=== PATIENT | female | born 1985 | race Caucasian/White ===

== ENCOUNTER 2022-09-14 21:48 | Emergency (ER) | payer MEDICAID ==
[~2022-09-14] VITALS: Ht 167.6 cm; Wt 52.2 kg
[~2022-09-14 21:48] MED LIST: BENZ-38 PO; LACT1CAP26 PO; LIDO20SO16 PO
[2022-09-14 22:28] LABS: BASOPHILS % (AUTO) 0.5 % (0-1); EOSINOPHILS # (AUTO) 0.3 X10'3 (0-0.9); EOSINOPHILS % (AUTO) 3.2 % (0-6); HEMOGLOBIN 13.4 g/dl (12.0-16.0); LYMPHOCYTES # (AUTO) 3.5 X10'3 (1.1-4.8); LYMPHOCYTES % (AUTO) 42.5 % (21-51); MEAN CORPUSCULAR HEMOGLOBIN 31.3 PG (27.0-31.0); MEAN CORPUSCULAR HGB CONC 32.7 g/dL (33.0-36.5); MEAN CORPUSCULAR VOLUME 95.9 FL (78-98); MEAN PLATELET VOLUME 6.5 FL (7.4-10.4); MONOCYTES # (AUTO) 0.8 X10'3 (0-0.9); MONOCYTES % (AUTO) 10.2 % (2-12); NEUTROPHILS # (AUTO) 3.6 X10'3 (1.8-7.7); NEUTROPHILS % (AUTO) 43.6 % (42-75); PLATELET COUNT 445 X10'3 (140-440); RED BLOOD COUNT 4.28 X10'6 (4.20-5.60); RED CELL DISTRIBUTION WIDTH 14.5 % (11.5-14.5); WHITE BLOOD COUNT 8.2 X10'3 (4.5-11.0)
[2022-09-14 22:44] LABS: ALANINE AMINOTRANSFERASE 42 U/L (12-78); ALBUMIN/GLOBULIN RATIO 0.7 (1.1-1.5); ALKALINE PHOSPHATASE 83 IU/L (46-116); ANION GAP 7 (8-16); ASPARTATE AMINO TRANSFERASE 31 U/L (10-37); BILIRUBIN,TOTAL 0.3 MG/DL (0.1-1.0); BLOOD UREA NITROGEN 15 MG/DL (7-18); CALCIUM 8.7 MG/DL (8.5-10.1); CHLORIDE 103 MMOL/L (99-107); LIPASE 399 U/L (73-393); POTASSIUM 3.7 MMOL/L (3.5-5.1); SODIUM 138 MMOL/L (135-145); TOTAL CARBON DIOXIDE 28.2 MMOL/L (24-32); TOTAL PROTEIN 7.4 G/DL (6.4-8.2); eGFR > 90 ML/MIN
[2022-09-14 22:47] LABS: GLUCOSE 80 MG/DL (70-104)
[2022-09-15 08:52] VITALS: BP 112/65
[2022-09-15] MEDS ORDERED: normal saline 1000ML IV soln IVB ONE (08:55)
[2022-09-15] MEDS ORDERED: ondansetron/PF 4mg/2ml inj IV ONE (08:55)
[2022-09-15] MEDS ORDERED: ibuprofen 200mg tablet PO ONE (09:25)
[2022-09-15] MEDS ORDERED: mirtazapine 15mg tablet PO ONE (09:25)
[2022-09-15 10:00] LABS: URINE HCG NEGATIVE (NEG)
[2022-09-15 10:02] LABS: CLARITY,URINE CLEAR (Clear); COLOR,URINE YELLOW (Yellow); GLUCOSE, URINE NEGATIVE (Neg); KETONES,URINE NEGATIVE (Neg); LEUKOCYTE ESTERASE ,URINE TRACE (Neg); NITRITES, URINE NEGATIVE (Neg); OCCULT BLOOD,URINE NEGATIVE (Neg); PH,URINE 5.5 (4.8-8.0); PROTEIN,URINE NEGATIVE (Neg); UROBILINOGEN,URINE 0.2 E.U/dL (0.2-1.0)
[2022-09-15 10:10] LABS: UA COLLECTION TYPE CLN CATCH MIDSTREAM
[2022-09-15 10:24] LABS: SQUAMOUS EPITHELIAL CELL,UR MODERATE /LPF (FEW); TRICHOMONAS,URINE FEW /HPF (NEGATIVE)
[2022-09-15 10:26] LABS: WBC,URINE 0-4 /HPF (0-4)
[2022-09-15 10:27] LABS: BACTERIA,URINE NONE SEEN /HPF (Neg); RBC,URINE 0-2 /HPF (0-2)
[2022-09-15] MEDS ORDERED: CEPH-268 PO (11:18)
[2022-09-15] MEDS ORDERED: cephalexin 500mg capsule PO ONE (11:20)
[2022-09-15] MEDS ORDERED: metroNIDAZOLE 500mg tablet PO ONE (11:20)
[2022-09-15] MEDS ORDERED: mirtazapine 15mg tablet PO SCH (21:00)
== END 2022-09-15 11:55 | disposition home or self-care (01) ==
LOC: ER 21:50
DX: R10.13 Epigastric pain (principal); A59.8 Trichomoniasis of other sites; N34.2 Other urethritis; R19.7 Diarrhea, unspecified
CPT/HCPCS: 36415; 80053; 81001; 81025; 83690; 85025; 87088; 96374; 99283; J2405; J7030

== ENCOUNTER 2022-12-23 09:59 | Emergency (ER) | payer MEDICAID ==
[~2022-12-23] VITALS: Ht 170.2 cm; Wt 52.0 kg
[~2022-12-23 09:59] MED LIST changes: -BENZ-38 PO
[2022-12-23 10:18] VITALS: BP 115/58
== END 2022-12-23 11:25 | disposition home or self-care (01) ==
LOC: ER 10:00
DX: R55 Syncope and collapse (principal); Z79.899 Other long term (current) drug therapy
CPT/HCPCS: 99281

== ENCOUNTER 2023-03-25 08:35 | Emergency (ER) | payer MEDICAID ==
[~2023-03-25 08:35] MED LIST changes: +DOCU100C40 PO; -LACT1CAP26 PO; -LIDO20SO16 PO; +NICO-687 TD; +PALI156D IM; +PALI3TAB5 PO; +PANT40TA54 PO
== END 2023-03-25 08:59 | disposition left against medical advice (07) ==
LOC: ER 08:35
DX: R10.9 Unspecified abdominal pain (principal); Z53.21 Procedure and treatment not carried out due to patient leaving prior to being seen by health care provider

== ENCOUNTER 2023-04-07 17:20 | Emergency (ER) | payer MEDICAID | END 2023-04-07 18:53 | disposition left against medical advice (07) | LOC: ER 17:21 | DX: Z00.8 Encounter for other general examination (principal); Z53.21 Procedure and treatment not carried out due to patient leaving prior to being seen by health care provider ==

== ENCOUNTER 2023-05-16 00:32 | Emergency (ER) | payer MEDICAID ==
[~2023-05-16] VITALS: Ht 170.2 cm; Wt 59.1 kg
[2023-05-16 00:54] VITALS: BP 121/72; PULSE 72; RESP 14; TEMP 97.8; O2SAT 98
== END 2023-05-16 02:45 | disposition left against medical advice (07) ==
LOC: ER 00:34
DX: R10.9 Unspecified abdominal pain (principal); Z53.21 Procedure and treatment not carried out due to patient leaving prior to being seen by health care provider
CPT/HCPCS: 99281

== ENCOUNTER 2023-07-19 21:25 | Emergency (ER) | payer MEDICAID ==
[~2023-07-19] VITALS: Ht 170.2 cm; Wt 48.2 kg
[2023-07-19 21:26] VITALS: TEMP 98.8
[2023-07-20 03:01] VITALS: BP 121/82; PULSE 89; RESP 18; O2SAT 99
== END 2023-07-20 06:14 | disposition left against medical advice (07) ==
LOC: ER 21:26
DX: F41.9 Anxiety disorder, unspecified (principal); Z53.21 Procedure and treatment not carried out due to patient leaving prior to being seen by health care provider
CPT/HCPCS: 99281

== ENCOUNTER 2023-07-23 17:59 | Emergency (ER) | payer MEDICAID | END 2023-07-23 19:28 | disposition left against medical advice (07) | LOC: ER 18:00 | DX: Z00.00 Encounter for general adult medical examination without abnormal findings (principal); Z53.21 Procedure and treatment not carried out due to patient leaving prior to being seen by health care provider ==

== ENCOUNTER 2023-07-23 19:38 | Emergency (ER) | payer MEDICAID | END 2023-07-23 21:21 | disposition left against medical advice (07) | LOC: ER 19:39 | DX: Z00.00 Encounter for general adult medical examination without abnormal findings (principal); Z53.21 Procedure and treatment not carried out due to patient leaving prior to being seen by health care provider ==

== ENCOUNTER 2023-07-24 07:38 | Emergency (ER) | payer MEDICAID | END 2023-07-24 09:30 | disposition left against medical advice (07) | LOC: ER 07:38 | DX: E86.0 Dehydration (principal); Z53.21 Procedure and treatment not carried out due to patient leaving prior to being seen by health care provider ==

== ENCOUNTER 2023-07-25 03:55 | Emergency (ER) | payer MEDICAID ==
[~2023-07-25] VITALS: Ht 170.2 cm; Wt 47.0 kg
[2023-07-25 04:31] VITALS: BP 125/87; PULSE 67; RESP 14; O2SAT 100
[2023-07-25 04:46] VITALS: TEMP 97.4
== END 2023-07-25 05:14 | disposition home or self-care (01) ==
LOC: ER 03:55
DX: Z02.89 Encounter for other administrative examinations (principal); F20.9 Schizophrenia, unspecified; Z79.899 Other long term (current) drug therapy; Z59.00 Homelessness unspecified
CPT/HCPCS: 99281

== ENCOUNTER 2023-07-27 17:36 | Emergency (ER) | payer MEDICAID ==
--- NOTE | 2023-07-27 18:05 | NUR ---
NOT IN LOBBY
--- NOTE | 2023-07-27 18:18 | NUR ---
NOT IN LOBBY
[2023-07-27] MEDS ORDERED: ONDA4TAB12 PO (21:48)
== END 2023-07-27 18:23 | disposition left against medical advice (07) ==
LOC: ER 17:36
DX: A08.4 Viral intestinal infection, unspecified (principal); Z53.21 Procedure and treatment not carried out due to patient leaving prior to being seen by health care provider
CPT/HCPCS: 99281

== ENCOUNTER 2023-07-27 18:42 | Emergency (ER) | payer MEDICAID ==
[~2023-07-27] VITALS: Ht 165.1 cm; Wt 50.6 kg
[2023-07-27] MEDS ORDERED: ondansetron 4mg rapidly disintigrating tab PO ONE (21:45)
[2023-07-27] MEDS ORDERED: ketorolac trometh. 30mg/ml inj. IM ONE (21:45)
[2023-07-27] MEDS ORDERED: ONDA4TAB12 PO (21:48)
[2023-07-27 22:08] VITALS: BP 126/85; PULSE 81; RESP 18; TEMP 97.8; O2SAT 98
== END 2023-07-27 22:12 | disposition home or self-care (01) ==
LOC: ER 18:43
DX: B34.9 Viral infection, unspecified (principal); F20.9 Schizophrenia, unspecified; Z79.899 Other long term (current) drug therapy
CPT/HCPCS: 96372; 99283; J1885

== ENCOUNTER 2023-08-10 05:53 | Emergency (ER) | payer MEDICAID ==
[~2023-08-10] VITALS: Ht 154.9 cm; Wt 50.0 kg
[~2023-08-10 05:53] MED LIST changes: +ONDA4TAB12 PO
[2023-08-10 05:54] VITALS: BP 91/60; PULSE 73; RESP 16; TEMP 97.1; O2SAT 100
--- NOTE | 2023-08-10 07:56 | NUR ---
not in lobby [id number]
--- NOTE | 2023-08-10 08:37 | NUR ---
not in lobby [id number]
--- NOTE | 2023-08-10 10:56 | NUR ---
pt not in lobby
== END 2023-08-10 12:00 | disposition left against medical advice (07) ==
LOC: ER 05:54
DX: R05.9 Cough, unspecified (principal); Z53.21 Procedure and treatment not carried out due to patient leaving prior to being seen by health care provider
CPT/HCPCS: 99281

== ENCOUNTER 2023-08-10 11:51 | Emergency (ER) | payer MEDICAID | END 2023-08-10 13:54 | disposition left against medical advice (07) | LOC: ER 11:52 | DX: Z45.1 Encounter for adjustment and management of infusion pump (principal); Z53.21 Procedure and treatment not carried out due to patient leaving prior to being seen by health care provider ==

== ENCOUNTER 2023-08-11 04:46 | Emergency (ER) | payer MEDICAID ==
[~2023-08-11] VITALS: Ht 162.6 cm; Wt 48.0 kg
[2023-08-11] MEDS ORDERED: ondansetron/PF 4mg/2ml inj IV ONE (06:50)
[2023-08-11] MEDS ORDERED: normal saline 1000ml 1,000 ML IV ONE (06:50)
[2023-08-11] MEDS ORDERED: famotidine/PF 10 mg/ml inj IV ONE (06:50)
[2023-08-11 07:53] LABS: URINE HCG NEGATIVE (NEG)
[2023-08-11 09:15] VITALS: BP 103/73; PULSE 83; RESP 16; TEMP 98.4; O2SAT 96
== END 2023-08-11 09:18 | disposition home or self-care (01) ==
LOC: ER 04:48
DX: R11.2 Nausea with vomiting, unspecified (principal); R10.9 Unspecified abdominal pain; Z59.00 Homelessness unspecified; Z79.899 Other long term (current) drug therapy; Z98.891 History of uterine scar from previous surgery
CPT/HCPCS: 81025; 96361; 96374; 96375; 99284; J2405; J3490; J7030; A4353

== ENCOUNTER 2023-08-14 00:37 | Emergency (ER) | payer MEDICAID ==
[~2023-08-14] VITALS: Ht 162.6 cm; Wt 54.0 kg
[2023-08-14 00:53] VITALS: BP 116/84; PULSE 79; RESP 18; TEMP 98.4; O2SAT 100
--- NOTE | 2023-08-14 02:54 | NUR ---
PT INFORMED PIPE STEM ALIGNER THAT SHE WAS LEAVING AFTER SPEAKING WITH DOCTOR. PT AMBULATED OUT OF ROOM 17 WITH EVEN, STEADY GAIT, NO S/S OF DISTRESS.
== END 2023-08-14 03:08 | disposition left against medical advice (07) ==
LOC: ER 00:39
DX: B34.9 Viral infection, unspecified (principal); Z59.00 Homelessness unspecified; Z79.899 Other long term (current) drug therapy
CPT/HCPCS: 99281

== ENCOUNTER 2023-08-15 00:46 | Emergency (ER) | payer MEDICAID ==
[~2023-08-15] VITALS: Ht 144.8 cm; Wt 49.8 kg
--- NOTE | 2023-08-15 03:51 | NUR ---
PER DR ZUNIGA, PT PROVIDED WITH PITCHER OF WATER, APPLE JUICE AND A TURKEY SANDWICH. SHE STATES "I DON'T WANT ANYTHING!" THIS RN LEFT THE ITEMS AND BEDSIDE AND REMINDED PATIENT THAT EATING AND DRINKING WILL HELP HER REACH HER STATED GOAL OF "REHYDRATION"
[2023-08-15 04:01] VITALS: BP 124/80; PULSE 80; RESP 18; TEMP 98; O2SAT 98
--- NOTE | 2023-08-15 04:01 | NUR ---
PER PTS REQUEST, NEW SWEATPANTS AND SWEATER PROVIDED. SHE IS EATING HER TURKEY SANDWICH AND HAS DRUNK THE WATER AND APPLE JUICE
== END 2023-08-15 04:03 | disposition home or self-care (01) ==
LOC: ER 00:47
DX: Z02.89 Encounter for other administrative examinations (principal); R53.1 Weakness; R11.2 Nausea with vomiting, unspecified; Z59.00 Homelessness unspecified; Z79.899 Other long term (current) drug therapy
CPT/HCPCS: 99281

== ENCOUNTER 2023-09-20 05:55 | Emergency (ER) | payer MEDICAID ==
[~2023-09-20] VITALS: Ht 162.6 cm; Wt 51.6 kg
[~2023-09-20 05:55] MED LIST changes: +FAMO20TA44 PO
[2023-09-20] MEDS ORDERED: ondansetron 4mg rapidly disintigrating tab PO ONE (06:55)
[2023-09-20 08:39] VITALS: BP 128/96; PULSE 74; RESP 12; TEMP 97.8; O2SAT 100
== END 2023-09-20 09:10 | disposition home or self-care (01) ==
LOC: ER 05:57
DX: R11.0 Nausea (principal)
CPT/HCPCS: 99283

== ENCOUNTER 2023-09-21 04:40 | Emergency (ER) | payer MEDICAID ==
[~2023-09-21] VITALS: Ht 167.6 cm; Wt 50.0 kg
[2023-09-21 05:31] VITALS: BP 135/78; PULSE 70; RESP 16; TEMP 98.2; O2SAT 98
== END 2023-09-21 05:37 | disposition home or self-care (01) ==
LOC: ER 04:41
DX: R11.0 Nausea (principal); Z59.00 Homelessness unspecified; Z72.89 Other problems related to lifestyle; Z79.899 Other long term (current) drug therapy; Z76.0 Encounter for issue of repeat prescription
CPT/HCPCS: 99281

== ENCOUNTER 2023-09-23 06:27 | Emergency (ER) | payer MEDICAID ==
[~2023-09-23] VITALS: Ht 162.6 cm; Wt 49.8 kg
[2023-09-23 06:29] VITALS: BP 112/79; PULSE 101; RESP 16; TEMP 98; O2SAT 96
== END 2023-09-23 08:09 | disposition left against medical advice (07) ==
LOC: ER 06:28
DX: E86.0 Dehydration (principal); Z53.21 Procedure and treatment not carried out due to patient leaving prior to being seen by health care provider
CPT/HCPCS: 99281

== ENCOUNTER 2023-10-05 08:22 | Emergency (ER) | payer MEDICAID ==
[~2023-10-05] VITALS: Ht 162.6 cm; Wt 52.2 kg
[2023-10-05 09:14] VITALS: TEMP 98.7
[2023-10-05] MEDS ORDERED: NAPR-56 PO (10:04)
[2023-10-05] MEDS ORDERED: ketorolac trometh inj. 60 MG/2 ML VIAL IM ONE (10:05)
[2023-10-05 10:27] VITALS: BP 118/81; PULSE 82; RESP 20; O2SAT 97
== END 2023-10-05 10:28 | disposition home or self-care (01) ==
LOC: ER 08:23
DX: B34.9 Viral infection, unspecified (principal); Z20.822 Contact with and (suspected) exposure to COVID-19; Z79.899 Other long term (current) drug therapy
CPT/HCPCS: 36415; 87811; 96372; 99283; J1885

== ENCOUNTER 2023-10-16 15:57 | Emergency (ER) | payer MEDICAID ==
[~2023-10-16] VITALS: Ht 162.6 cm; Wt 56.0 kg
[~2023-10-16 15:57] MED LIST changes: +NAPR-56 PO
[2023-10-16 16:06] VITALS: BP 134/97; PULSE 85; RESP 18; TEMP 97.7; O2SAT 100
[2023-10-16 17:40] LABS: BASOPHILS # (AUTO) 0.1 X10'3 (0-0.2); BASOPHILS % (AUTO) 0.8 % (0-1); EOSINOPHILS # (AUTO) 0.2 X10'3 (0-0.9); EOSINOPHILS % (AUTO) 2.7 % (0-6); HEMATOCRIT 47.1 % (35.0-45.0); HEMOGLOBIN 15.8 g/dl (12.0-16.0); LYMPHOCYTES # (AUTO) 2.9 X10'3 (1.1-4.8); LYMPHOCYTES % (AUTO) 35.2 % (21-51); MEAN CORPUSCULAR HEMOGLOBIN 32.8 PG (27.0-31.0); MEAN CORPUSCULAR HGB CONC 33.5 g/dL (33.0-36.5); MEAN PLATELET VOLUME 7.3 FL (7.4-10.4); MONOCYTES # (AUTO) 0.7 X10'3 (0-0.9); MONOCYTES % (AUTO) 8.4 % (2-12); NEUTROPHILS # (AUTO) 4.3 X10'3 (1.8-7.7); NEUTROPHILS % (AUTO) 52.9 % (42-75); PLATELET COUNT 309 X10'3 (140-440); RED BLOOD COUNT 4.81 X10'6 (4.20-5.60); RED CELL DISTRIBUTION WIDTH 13.6 % (11.5-14.5); WHITE BLOOD COUNT 8.2 X10'3 (4.5-11.0)
[2023-10-16 17:55] LABS: ALANINE AMINOTRANSFERASE 133 U/L (12-78); ALBUMIN 3.6 G/DL (3.4-5.0); ALBUMIN/GLOBULIN RATIO 0.9 (1.1-1.5); ALKALINE PHOSPHATASE 78 IU/L (46-116); ANION GAP 6 (8-16); ASPARTATE AMINO TRANSFERASE 114 U/L (10-37); BILIRUBIN,TOTAL 0.9 MG/DL (0.1-1.0); BLOOD UREA NITROGEN 18 MG/DL (7-18); CALCIUM 9.6 MG/DL (8.5-10.1); CHLORIDE 100 MMOL/L (99-107); CREATININE 0.75 MG/DL (0.40-0.90); ETHANOL < 10 MG/DL (<10); GLUCOSE 68 MG/DL (70-104); POTASSIUM 3.5 MMOL/L (3.5-5.1); SODIUM 137 MMOL/L (135-145); TOTAL CARBON DIOXIDE 30.7 MMOL/L (24-32); TOTAL PROTEIN 7.7 G/DL (6.4-8.2); eCRCL 90 ML/MIN; eGFR 87 ML/MIN
== END 2023-10-16 18:11 | disposition left against medical advice (07) ==
LOC: ER 15:58
DX: Z00.8 Encounter for other general examination (principal); Z53.21 Procedure and treatment not carried out due to patient leaving prior to being seen by health care provider
CPT/HCPCS: 36415; 80053; 80320; 85025; 99281

== ENCOUNTER 2023-10-16 23:40 | Emergency (ER) | payer MEDICAID ==
[~2023-10-16] VITALS: Ht 165.1 cm; Wt 51.7 kg
[2023-10-17 00:01] VITALS: BP 117/81; PULSE 88; O2SAT 98
[2023-10-17] MEDS ORDERED: ondansetron 4mg rapidly disintigrating tab PO ONE (02:30)
[2023-10-17 02:38] VITALS: RESP 16
[2023-10-17 02:40] VITALS: TEMP 98.6
== END 2023-10-17 02:40 | disposition home or self-care (01) ==
LOC: ER 23:42
DX: R11.0 Nausea (principal); F20.9 Schizophrenia, unspecified; Z59.00 Homelessness unspecified
CPT/HCPCS: 99283

== ENCOUNTER 2023-10-26 11:15 | Emergency (ER) | payer MEDICAID ==
[~2023-10-26] VITALS: Ht 162.6 cm; Wt 52.7 kg
[2023-10-26 11:53] VITALS: BP 133/81; PULSE 88; RESP 16; TEMP 98.2; O2SAT 100
[2023-10-26 13:21] LABS: BASOPHILS # (AUTO) 0.1 X10'3 (0-0.2); BASOPHILS % (AUTO) 1.1 % (0-1); EOSINOPHILS # (AUTO) 0.2 X10'3 (0-0.9); EOSINOPHILS % (AUTO) 2.5 % (0-6); HEMATOCRIT 40.2 % (35.0-45.0); HEMOGLOBIN 13.5 g/dl (12.0-16.0); LYMPHOCYTES # (AUTO) 3.9 X10'3 (1.1-4.8); LYMPHOCYTES % (AUTO) 52.9 % (21-51); MEAN CORPUSCULAR HEMOGLOBIN 33.3 PG (27.0-31.0); MEAN CORPUSCULAR HGB CONC 33.6 g/dL (33.0-36.5); MEAN CORPUSCULAR VOLUME 99.2 FL (78-98); MEAN PLATELET VOLUME 7.4 FL (7.4-10.4); MONOCYTES # (AUTO) 0.5 X10'3 (0-0.9); MONOCYTES % (AUTO) 6.2 % (2-12); NEUTROPHILS # (AUTO) 2.8 X10'3 (1.8-7.7); NEUTROPHILS % (AUTO) 37.3 % (42-75); PLATELET COUNT 257 X10'3 (140-440); RED BLOOD COUNT 4.06 X10'6 (4.20-5.60); RED CELL DISTRIBUTION WIDTH 13.8 % (11.5-14.5); WHITE BLOOD COUNT 7.5 X10'3 (4.5-11.0)
[2023-10-26 13:36] LABS: HCG SERUM QL NEGATIVE
[2023-10-26 13:44] LABS: ALANINE AMINOTRANSFERASE 74 U/L (12-78); ALBUMIN 2.8 G/DL (3.4-5.0); ALBUMIN/GLOBULIN RATIO 0.8 (1.1-1.5); ALKALINE PHOSPHATASE 60 IU/L (46-116); ANION GAP 9 (8-16); ASPARTATE AMINO TRANSFERASE 62 U/L (10-37); BILIRUBIN,TOTAL 0.4 MG/DL (0.1-1.0); BLOOD UREA NITROGEN 12 MG/DL (7-18); BUN/CREATININE RATIO 20.3 (10.0-20.0); CALCIUM 8.2 MG/DL (8.5-10.1); CHLORIDE 104 MMOL/L (99-107); CREATININE 0.59 MG/DL (0.40-0.90); ETHANOL 30 MG/DL (<10); GLUCOSE 106 MG/DL (70-104); LIPASE 54 U/L (16-77); POTASSIUM 3.8 MMOL/L (3.5-5.1); SALICYLATE 3.1 MG/DL (4.0-20.0); SODIUM 137 MMOL/L (135-145); TOTAL CARBON DIOXIDE 23.7 MMOL/L (24-32); TOTAL PROTEIN 6.3 G/DL (6.4-8.2); eCRCL 110 ML/MIN; eGFR > 90 ML/MIN
[2023-10-26 14:32] LABS: TOTAL CELLS COUNTED 100
[2023-10-26 14:33] LABS: PLATELET ESTIMATE NORMAL
== END 2023-10-26 15:19 | disposition left against medical advice (07) ==
LOC: ER 11:16
DX: R10.9 Unspecified abdominal pain (principal); Z79.899 Other long term (current) drug therapy
CPT/HCPCS: 36415; 80053; 80320; 80329; 83690; 84703; 85007; 85025; 99283

== ENCOUNTER 2023-11-12 11:32 | Emergency (ER) | payer MEDICAID ==
[~2023-11-12] VITALS: Ht 162.6 cm; Wt 50.3 kg
[~2023-11-12 11:32] MED LIST changes: -NAPR-56 PO
[2023-11-12 12:10] VITALS: BP 110/72; PULSE 100; RESP 16; TEMP 98.2; O2SAT 97
== END 2023-11-12 12:41 | disposition home or self-care (01) ==
LOC: ER 11:32
DX: E86.0 Dehydration (principal); F20.9 Schizophrenia, unspecified; F10.90 Alcohol use, unspecified, uncomplicated; Z59.00 Homelessness unspecified; Z79.899 Other long term (current) drug therapy; Z88.8 Allergy status to other drugs, medicaments and biological substances
CPT/HCPCS: 99281

== ENCOUNTER 2023-11-12 18:38 | Emergency (ER) | payer MEDICAID | END 2023-11-12 19:36 | disposition left against medical advice (07) | LOC: ER 18:38 | DX: J06.9 Acute upper respiratory infection, unspecified (principal); Z53.21 Procedure and treatment not carried out due to patient leaving prior to being seen by health care provider ==

== ENCOUNTER 2023-11-14 18:08 | Emergency (ER) | payer MEDICAID ==
[~2023-11-14] VITALS: Ht 157.5 cm; Wt 49.6 kg
[2023-11-14 18:16] VITALS: BP 100/66; PULSE 80; RESP 16; TEMP 98.7; O2SAT 98
[2023-11-14 18:32] LABS: BASOPHILS % (AUTO) 0.2 % (0-1); EOSINOPHILS # (AUTO) 0.1 X10'3 (0-0.9); EOSINOPHILS % (AUTO) 1.4 % (0-6); HEMATOCRIT 39.4 % (35.0-45.0); HEMOGLOBIN 13.5 g/dl (12.0-16.0); LYMPHOCYTES # (AUTO) 2.9 X10'3 (1.1-4.8); LYMPHOCYTES % (AUTO) 45.1 % (21-51); MEAN CORPUSCULAR HEMOGLOBIN 32.9 PG (27.0-31.0); MEAN CORPUSCULAR HGB CONC 34.3 g/dL (33.0-36.5); MEAN CORPUSCULAR VOLUME 96.1 FL (78-98); MEAN PLATELET VOLUME 7.4 FL (7.4-10.4); MONOCYTES # (AUTO) 0.7 X10'3 (0-0.9); MONOCYTES % (AUTO) 10.9 % (2-12); NEUTROPHILS # (AUTO) 2.7 X10'3 (1.8-7.7); NEUTROPHILS % (AUTO) 42.4 % (42-75); PLATELET COUNT 324 X10'3 (140-440); RED CELL DISTRIBUTION WIDTH 13.8 % (11.5-14.5); WHITE BLOOD COUNT 6.5 X10'3 (4.5-11.0)
[2023-11-14 18:42] LABS: ALANINE AMINOTRANSFERASE 26 U/L (12-78); ALBUMIN 2.3 G/DL (3.4-5.0); ALBUMIN/GLOBULIN RATIO 0.5 (1.1-1.5); ALKALINE PHOSPHATASE 68 IU/L (46-116); ANION GAP 7 (8-16); ASPARTATE AMINO TRANSFERASE 21 U/L (10-37); BILIRUBIN,TOTAL 0.3 MG/DL (0.1-1.0); BLOOD UREA NITROGEN 7 MG/DL (7-18); BUN/CREATININE RATIO 10.3 (10.0-20.0); CALCIUM 8.6 MG/DL (8.5-10.1); CHLORIDE 104 MMOL/L (99-107); CREATININE 0.68 MG/DL (0.40-0.90); GLUCOSE 90 MG/DL (70-104); POTASSIUM 3.6 MMOL/L (3.5-5.1); SODIUM 146 MMOL/L (135-145); TOTAL CARBON DIOXIDE 34.8 MMOL/L (24-32); TOTAL PROTEIN 6.6 G/DL (6.4-8.2); eCRCL 90 ML/MIN; eGFR > 90 ML/MIN
[2023-11-14 18:51] LABS: PRO BRAIN NATRIURETIC PEPTIDE 60 PG/ML (0-125)
[2023-11-14] MEDS ORDERED: BENZ-38 PO (19:29)
[2023-11-14] MEDS ORDERED: ONDA4TAB12 PO (19:29)
[2023-11-14] MEDS: ondansetron 4mg rapidly disintigrating tab PO ONE (19:40)
[2023-11-14] MEDS: benzonatate 100mg capsule PO ONE (19:40)
== END 2023-11-14 20:04 | disposition home or self-care (01) ==
LOC: ER 18:09
DX: J06.9 Acute upper respiratory infection, unspecified (principal); R05.9 Cough, unspecified; E86.0 Dehydration; F20.9 Schizophrenia, unspecified; Z72.89 Other problems related to lifestyle; Z59.00 Homelessness unspecified; Z88.8 Allergy status to other drugs, medicaments and biological substances; Z79.899 Other long term (current) drug therapy
CPT/HCPCS: 36415; 80053; 83880; 84484; 85025; 93005; 99284

== ENCOUNTER 2023-11-17 07:16 | Emergency (ER) | payer MEDICAID ==
[~2023-11-17] VITALS: Ht 162.6 cm; Wt 54.5 kg
[~2023-11-17 07:16] MED LIST changes: +BENZ-38 PO
[2023-11-17 07:18] VITALS: BP 124/82; PULSE 89; TEMP 97.8; O2SAT 98
[2023-11-17 07:24] VITALS: RESP 18
[2023-11-17] MEDS ORDERED: DOXY100C43 PO (07:58)
[2023-11-17] MEDS ORDERED: BENZ-38 PO (08:10)
== END 2023-11-17 08:29 | disposition home or self-care (01) ==
LOC: ER 07:17
DX: J20.9 Acute bronchitis, unspecified (principal); F20.9 Schizophrenia, unspecified; Z59.00 Homelessness unspecified; Z79.899 Other long term (current) drug therapy
CPT/HCPCS: 99283

== ENCOUNTER 2024-08-12 02:44 | Emergency (ER) | payer MEDICAID ==
[~2024-08-12] VITALS: Ht 167.6 cm; Wt 59.1 kg
[~2024-08-12 02:44] MED LIST changes: +ONDA-243 PO; -ONDA4TAB12 PO
[2024-08-12 06:05] VITALS: BP 118/67; PULSE 98; RESP 14; TEMP 97.9; O2SAT 98
== END 2024-08-12 06:07 | disposition home or self-care (01) ==
LOC: ER 02:45
DX: E86.0 Dehydration (principal); F20.9 Schizophrenia, unspecified; Z79.899 Other long term (current) drug therapy; Z59.00 Homelessness unspecified
CPT/HCPCS: 99284

== ENCOUNTER 2024-09-07 02:18 | Emergency (ER) | payer MEDICAID ==
[~2024-09-07] VITALS: Ht 157.5 cm; Wt 47.8 kg
[2024-09-07 02:22] VITALS: BP 123/73; PULSE 86; RESP 16; TEMP 98; O2SAT 97
[2024-09-07 03:17] LABS: BASOPHILS # (AUTO) 0.1 X10'3 (0-0.2); BASOPHILS % (AUTO) 0.8 % (0-1); EOSINOPHILS # (AUTO) 0.2 X10'3 (0-0.9); HEMATOCRIT 41.2 % (35.0-45.0); LYMPHOCYTES # (AUTO) 3.5 X10'3 (1.1-4.8); LYMPHOCYTES % (AUTO) 42.9 % (21-51); MEAN CORPUSCULAR HEMOGLOBIN 33.3 PG (27.0-31.0); MEAN CORPUSCULAR HGB CONC 33.9 g/dL (33.0-36.5); MEAN PLATELET VOLUME 7.3 FL (7.4-10.4); MONOCYTES # (AUTO) 0.6 X10'3 (0-0.9); MONOCYTES % (AUTO) 7.5 % (2-12); NEUTROPHILS # (AUTO) 3.9 X10'3 (1.8-7.7); NEUTROPHILS % (AUTO) 46.8 % (42-75); PLATELET COUNT 333 X10'3 (140-440); RED CELL DISTRIBUTION WIDTH 13.9 % (11.5-14.5); WHITE BLOOD COUNT 8.2 X10'3 (4.5-11.0)
[2024-09-07 03:19] LABS: BILIRUBIN,URINE NEGATIVE (Neg); CLARITY,URINE CLEAR (Clear); COLOR,URINE YELLOW (Yellow); GLUCOSE, URINE NEGATIVE (Neg); KETONES,URINE NEGATIVE (Neg); LEUKOCYTE ESTERASE ,URINE NEGATIVE (Neg); NITRITES, URINE NEGATIVE (Neg); OCCULT BLOOD,URINE NEGATIVE (Neg); PROTEIN,URINE NEGATIVE (Neg); UROBILINOGEN,URINE 0.2 E.U/dL (0.2-1.0)
[2024-09-07 03:20] LABS: URINE HCG NEGATIVE (NEG)
[2024-09-07 03:33] LABS: ALANINE AMINOTRANSFERASE 38 U/L (12-78); ALBUMIN 3.3 G/DL (3.4-5.0); ALBUMIN/GLOBULIN RATIO 0.9 (1.1-1.5); ALKALINE PHOSPHATASE 74 IU/L (46-116); ANION GAP 5 (8-16); ASPARTATE AMINO TRANSFERASE 31 U/L (10-37); BILIRUBIN,TOTAL 0.4 MG/DL (0.1-1.0); BLOOD UREA NITROGEN 23 MG/DL (7-18); BUN/CREATININE RATIO 31.1 (10.0-20.0); CALCIUM 8.3 MG/DL (8.5-10.1); CHLORIDE 103 MMOL/L (99-107); CREATININE 0.74 MG/DL (0.40-0.90); ETHANOL < 10 MG/DL (<10); GLUCOSE 96 MG/DL (70-104); LIPASE 68 U/L (16-77); POTASSIUM 4.1 MMOL/L (3.5-5.1); SODIUM 139 MMOL/L (135-145); TOTAL CARBON DIOXIDE 31.2 MMOL/L (24-32); eCRCL 79 ML/MIN; eGFR 88 ML/MIN
[2024-09-07 03:35] LABS: URINE AMPHETAMINE SCREEN POSITIVE (Neg); URINE BARBITUATE SCREEN NEGATIVE (Neg); URINE BENZODIAZEPINES SCREEN NEGATIVE (Neg); URINE CANNABINOID SCREEN NEGATIVE (Neg); URINE COCAINE SCREEN NEGATIVE (Neg); URINE METHADONE SCREEN NEGATIVE (Neg); URINE OPIATE SCREEN NEGATIVE (Neg); URINE PHENCYCLIDINE SCREEN NEGATIVE (Neg)
[2024-09-07 03:37] LABS: UA COLLECTION TYPE CLN CATCH MIDSTREAM
== END 2024-09-07 04:23 | disposition left against medical advice (07) ==
LOC: ER 02:19
DX: R10.9 Unspecified abdominal pain (principal); Z53.21 Procedure and treatment not carried out due to patient leaving prior to being seen by health care provider
CPT/HCPCS: 36415; 80053; 80305; 80320; 81003; 81025; 82948; 83690; 85025

== ENCOUNTER 2024-09-07 05:48 | Emergency (ER) | payer MEDICAID ==
[~2024-09-07] VITALS: Ht 157.5 cm; Wt 47.8 kg
[2024-09-07 05:53] VITALS: BP 127/87; PULSE 99; RESP 16; TEMP 98; O2SAT 98
== END 2024-09-07 07:16 | disposition left against medical advice (07) ==
LOC: ER 05:49
DX: R10.9 Unspecified abdominal pain (principal); Z53.21 Procedure and treatment not carried out due to patient leaving prior to being seen by health care provider

== ENCOUNTER 2024-09-09 03:23 | Emergency (ER) | payer MEDICAID ==
[~2024-09-09] VITALS: Ht 170.2 cm; Wt 48.0 kg
[2024-09-09 03:38] VITALS: TEMP 97.8
[2024-09-09 04:02] VITALS: BP 132/88; PULSE 62; RESP 16; O2SAT 100
== END 2024-09-09 05:06 | disposition home or self-care (01) ==
LOC: ER 03:24
DX: R42 Dizziness and giddiness (principal); F20.9 Schizophrenia, unspecified; Z79.899 Other long term (current) drug therapy
CPT/HCPCS: 82948; 99284

== ENCOUNTER 2024-09-09 18:37 | Emergency (ER) | payer MEDICAID ==
[~2024-09-09] VITALS: Ht 162.6 cm; Wt 56.8 kg
[2024-09-09 21:47] LABS: STREP A SCREEN NEGATIVE (Neg)
[2024-09-09 23:11] VITALS: BP 140/86; PULSE 74; RESP 14; TEMP 98.1; O2SAT 97
== END 2024-09-09 23:14 | disposition home or self-care (01) ==
LOC: ER 18:38
DX: J02.9 Acute pharyngitis, unspecified (principal); F20.9 Schizophrenia, unspecified; Z20.822 Contact with and (suspected) exposure to COVID-19
CPT/HCPCS: 36415; 87081; 87502; 87503; 87811; 87880; 99283

== ENCOUNTER 2024-09-14 19:59 | Emergency (ER) | payer MEDICAID ==
[~2024-09-14] VITALS: Ht 160 cm; Wt 56.8 kg
[2024-09-14 20:17] VITALS: BP 145/81; PULSE 99; RESP 18; O2SAT 100
[2024-09-14 21:51] VITALS: TEMP 97.6
== END 2024-09-14 21:56 | disposition home or self-care (01) ==
LOC: ER 19:59
DX: F19.10 Other psychoactive substance abuse, uncomplicated (principal); F20.9 Schizophrenia, unspecified; Z59.00 Homelessness unspecified; Z79.899 Other long term (current) drug therapy
CPT/HCPCS: 99281

== ENCOUNTER 2024-09-16 09:23 | Emergency (ER) | payer MEDICAID ==
[~2024-09-16] VITALS: Ht 162.6 cm; Wt 59.1 kg
[2024-09-16 09:28] VITALS: BP 153/87; PULSE 74; RESP 16; TEMP 98; O2SAT 98
== END 2024-09-16 10:48 | disposition home or self-care (01) ==
LOC: ER 09:28
DX: J00 Acute nasopharyngitis [common cold] (principal); F20.9 Schizophrenia, unspecified; Z59.00 Homelessness unspecified; Z79.899 Other long term (current) drug therapy
CPT/HCPCS: 99281

== ENCOUNTER 2024-10-07 21:59 | Emergency (ER) | payer MEDICAID ==
[~2024-10-07] VITALS: Ht 160 cm; Wt 51.3 kg
[2024-10-07 22:04] VITALS: BP 142/110; PULSE 115; RESP 16; TEMP 98.6; O2SAT 98
== END 2024-10-07 23:58 | disposition left against medical advice (07) ==
LOC: ER 22:00
DX: H57.10 Ocular pain, unspecified eye (principal); Z53.21 Procedure and treatment not carried out due to patient leaving prior to being seen by health care provider

== ENCOUNTER 2024-10-09 15:37 | Emergency (ER) | payer MEDICAID ==
[~2024-10-09] VITALS: Ht 165.1 cm; Wt 54.5 kg
[2024-10-09 16:07] LABS: BASOPHILS % (AUTO) 0.3 % (0-1); EOSINOPHILS # (AUTO) 0.3 X10'3 (0-0.9); EOSINOPHILS % (AUTO) 2.6 % (0-6); HEMATOCRIT 38.9 % (35.0-45.0); HEMOGLOBIN 13.1 g/dl (12.0-16.0); LYMPHOCYTES # (AUTO) 3.6 X10'3 (1.1-4.8); LYMPHOCYTES % (AUTO) 33.6 % (21-51); MEAN CORPUSCULAR HGB CONC 33.6 g/dL (33.0-36.5); MEAN PLATELET VOLUME 7.3 FL (7.4-10.4); MONOCYTES % (AUTO) 9.5 % (2-12); NEUTROPHILS # (AUTO) 5.8 X10'3 (1.8-7.7); PLATELET COUNT 367 X10'3 (140-440); RED BLOOD COUNT 3.97 X10'6 (4.20-5.60); RED CELL DISTRIBUTION WIDTH 14.2 % (11.5-14.5); WHITE BLOOD COUNT 10.7 X10'3 (4.5-11.0)
[2024-10-09 16:10] LABS: BILIRUBIN,URINE NEGATIVE (Neg); CLARITY,URINE SLIGHTLY CLOUDY (Clear); COLOR,URINE YELLOW (Yellow); GLUCOSE, URINE NEGATIVE (Neg); KETONES,URINE NEGATIVE (Neg); LEUKOCYTE ESTERASE ,URINE NEGATIVE (Neg); NITRITES, URINE NEGATIVE (Neg); OCCULT BLOOD,URINE LARGE (Neg); PH,URINE 5.5 (4.8-8.0); PROTEIN,URINE NEGATIVE (Neg); UROBILINOGEN,URINE 0.2 E.U/dL (0.2-1.0)
[2024-10-09 16:16] LABS: URINE AMPHETAMINE SCREEN POSITIVE (Neg); URINE BARBITUATE SCREEN NEGATIVE (Neg); URINE BENZODIAZEPINES SCREEN NEGATIVE (Neg); URINE CANNABINOID SCREEN NEGATIVE (Neg); URINE COCAINE SCREEN NEGATIVE (Neg); URINE METHADONE SCREEN NEGATIVE (Neg); URINE OPIATE SCREEN NEGATIVE (Neg); URINE PHENCYCLIDINE SCREEN POSITIVE (Neg)
[2024-10-09 16:17] LABS: URINE HCG NEGATIVE (NEG)
[2024-10-09 16:18] LABS: UA COLLECTION TYPE VOIDED
[2024-10-09 16:29] LABS: BACTERIA,URINE 1+ /HPF (Neg); RBC,URINE 20-50 /HPF (0-2); SQUAMOUS EPITHELIAL CELL,UR MODERATE /LPF (FEW); WBC,URINE 0-4 /HPF (0-4)
[2024-10-09 16:32] LABS: RENAL CELLS, URINE FEW /HPF; TRANSITIONAL EPI CELLS,URINE FEW /HPF
[2024-10-09 16:33] LABS: ALBUMIN 3.4 G/DL (3.4-5.0); ANION GAP 10 (8-16); BLOOD UREA NITROGEN 18 MG/DL (7-18); BUN/CREATININE RATIO 29.5 (10.0-20.0); CALCIUM 8.9 MG/DL (8.5-10.1); CHLORIDE 105 MMOL/L (99-107); CREATININE 0.61 MG/DL (0.40-0.90); ETHANOL 80 MG/DL (<10); GLUCOSE 81 MG/DL (70-104); POTASSIUM 3.4 MMOL/L (3.5-5.1); SODIUM 142 MMOL/L (135-145); THYROID STIMULATING HORMONE 2.16 ulU/ml (0.34-4.50); TOTAL CARBON DIOXIDE 27.2 MMOL/L (24-32); eCRCL 109 ML/MIN; eGFR > 90 ML/MIN
[2024-10-09] MEDS ORDERED: OLAN20TA3 PO (18:51)
[2024-10-09] MEDS: olanzapine 10mg tablet PO SCH (20:21)
[2024-10-09] MEDS: acetaminophen 325mg tablet PO PRN (20:25)
[2024-10-10] MEDS: benzonatate 100mg capsule PO ONE (10:27)
[2024-10-10 14:51] VITALS: BP 90/65; PULSE 100; RESP 12; TEMP 97.4; O2SAT 100
== END 2024-10-10 14:58 ==
LOC: ER 15:38
DX: R44.0 Auditory hallucinations (principal); Z20.822 Contact with and (suspected) exposure to COVID-19
CPT/HCPCS: 36415; 80048; 80305; 80320; 81001; 81025; 84443; 85025; 87811; 99285

== ENCOUNTER 2024-11-01 05:58 | Emergency (ER) | payer MEDICAID ==
[~2024-11-01] VITALS: Ht 162.6 cm; Wt 53.6 kg
[~2024-11-01 05:58] MED LIST changes: -BENZ-38 PO; -DOCU100C40 PO; -FAMO20TA44 PO; -NICO-687 TD; +OLAN20TA3 PO; -ONDA-243 PO; -PALI156D IM; -PALI3TAB5 PO; -PANT40TA54 PO
[2024-11-01 06:04] VITALS: BP 125/88; PULSE 114; RESP 14; TEMP 97.6; O2SAT 98
== END 2024-11-01 07:36 | disposition left against medical advice (07) ==
LOC: ER 05:59
DX: B34.9 Viral infection, unspecified (principal); F20.9 Schizophrenia, unspecified; F32.A Depression, unspecified; Z59.01 Sheltered homelessness; Z20.822 Contact with and (suspected) exposure to COVID-19
CPT/HCPCS: 36415; 87502; 87503; 87811; 99283

== ENCOUNTER 2024-11-24 14:24 | Emergency (ER) | payer MEDICAID ==
[~2024-11-24] VITALS: Ht 160 cm; Wt 53.6 kg
[2024-11-24] MEDS: ketorolac trometh 30MG/ML vial 30 MG/ML VIAL IM ONE (16:27)
[2024-11-24 17:15] VITALS: BP 110/74; PULSE 62; RESP 15; TEMP 98; O2SAT 98
== END 2024-11-24 17:14 | disposition home or self-care (01) ==
LOC: ER 14:24
DX: G43.909 Migraine, unspecified, not intractable, without status migrainosus (principal); F15.10 Other stimulant abuse, uncomplicated; F20.9 Schizophrenia, unspecified; Z59.00 Homelessness unspecified; Z79.899 Other long term (current) drug therapy
CPT/HCPCS: 96372; 99283; J1885

== ENCOUNTER 2025-01-28 15:17 | Emergency (ER) | payer MEDICAID | END 2025-01-28 16:16 | disposition left against medical advice (07) | LOC: ER 15:18 | DX: R11.2 Nausea with vomiting, unspecified (principal); Z53.21 Procedure and treatment not carried out due to patient leaving prior to being seen by health care provider ==

== ENCOUNTER 2025-03-04 21:11 | Emergency (ER) | payer MEDICAID ==
[~2025-03-04] VITALS: Ht 162.6 cm; Wt 53.0 kg
--- NOTE | 2025-03-04 22:23 | Physician Documentation ---
History of Present Illness General Chief Complaint: See Chief Complaint Stated Complaint: DEHYDRATED Time Seen by MD: 21:29 Primary Medical Doctor: ALISSA CASTRO History of Present Illness Initial Comments 40-year-old female well known to the emergency department staff presents to the emergency department complaints of feeling mildly dehydrated. No nausea or vomiting no myalgias or fever. Medication Reconciliation Allergies: Coded Allergies: No Known Allergies (Unverified , 08/27/24) Scheduled Olanzapine (Zyprexa), 1 TAB PO HS, (Reported) Past Medical History Past Medical History: Schizophrenia Past Surgical History: no surgical history Alcohol Use: Other Lives In: Homeless Review of Systems Constitutional: Denies: fever RESP: Denies: short of breath, cough CV: Denies: chest pain GI: Denies: abdominal pain, nausea, vomiting, diarrhea Physical Exam Physical Exam Vital Signs: RN Vital Signs have been reviewed: Yes, Temperature: 97.7, Heart Rate: 104, Respiratory Rate: 16, BP: 132/94, Pulse Oximetry: 96, Weight: 53.000 Oxygen Flow Rate: 0 General Appearance: alert, WD/WN, no apparent distress, other (Disheveled) Head: normal inspection Pupils/EOM/Fundus: PERRLA Neck: full range of motion Respiratory: no respiratory distress Cardiovascular: regular rate, rhythm, no JVD Neurologic: oriented x4 Motor / Sensory: no motor deficit, no sensory deficit Psychiatric: normal mood/affect Skin: normal color Progress Results/Orders Results/Orders Vital Signs 03/04/25 21:16 Temp 97.7 Pulse 104 Resp 16 B/P (MAP) 132/94 Pulse Ox 96 O2 Flow Rate 0 Laboratory Tests Test 03/04/25 21:19 Glucometer 114 H Medical Decision Making Differential Diagnosis This is a 32-year-old female with a past medical history of methamphetamine use presents to emergency department oriented to her normal self request in the hydration. Take a whole picture water without nausea and vomiting. Tachycardia resolved there was no evidence of postural symptoms. She has elevated questioned some cranberry juice. Otherwise there is note she complaints and denies pain hunger. Additional resources assessed and declined by patient. No clinical suspicion for heat stroke were moderate heat exhaustion. If there was mild hydration that has been corrected. He has no postural symptoms. No clinical suspicion for service back to illness. Clinical suspicion for underlying recreational drug use. Patient discharged after receiving oral fluids and use in the emergency department Departure Disposition: HOME / SELF CARE / HOMELESS Impression: Primary Impression: Heat exhaustion, unspecified, initial encounter Additional Impressions: Sheltered homelessness Methamphetamine use Condition: Stable Discharge Instructions: Preventing Heat Exhaustion, Adult Additional Instructions: While in the emergency department you were provided a oral hydration. He had no reported nausea or vomiting. Please consider in time descending exposure to the heat. Please try to stay nursing home with a shade. Return as needed. Referrals: NO PRIMARY CARE PROVIDER (PCP) Education Educated: Patient Educated regarding: diagnosis, treatment, prognosis Signature Scribe Signature: . Attestation: . CECY REN PAC Mar 04, 2025 22:23
[2025-03-04 23:39] VITALS: BP 118/73; PULSE 66; RESP 19; TEMP 98; O2SAT 100
== END 2025-03-05 00:17 | disposition home or self-care (01) ==
LOC: ER 21:12
DX: T67.5XXA Heat exhaustion, unspecified, initial encounter (principal); F15.90 Other stimulant use, unspecified, uncomplicated; Z59.01 Sheltered homelessness; F20.9 Schizophrenia, unspecified; X58.XXXA Exposure to other specified factors, initial encounter; Y93.89 Activity, other specified; Y92.89 Other specified places as the place of occurrence of the external cause; Y99.8 Other external cause status
CPT/HCPCS: 82948; 99282

== ENCOUNTER 2025-03-20 21:06 | Emergency (ER) | payer MEDICAID ==
[~2025-03-20] VITALS: Ht 162.6 cm; Wt 54.5 kg
[~2025-03-20 21:06] MED LIST changes: +OLAN-40 PO; -OLAN20TA3 PO
--- NOTE | 2025-03-20 22:34 | Physician Documentation ---
History of Present Illness ~ General Chief Complaint: Multiple Medical Complaints Stated Complaint: DEHYDRATED Time Seen by MD: 01:18 Primary Medical Doctor: ALISSA CASTRO History of Present Illness Initial Comments Patient presents to the emergency room and told triage that she fell dehydrated however she has no complaint for me at this time and she has been eating and drinking. Medication Reconciliation Allergies: Coded Allergies: No Known Allergies (Unverified , 08/27/24) Scheduled Olanzapine (Zyprexa), 1 TAB PO HS, (Reported) Past Medical History Past Medical History: Schizophrenia Past Surgical History: no surgical history Alcohol Use: Other Lives In: Homeless Review of Systems ROS All review of systems negative except as per HPI Physical Exam Physical Exam Vital Signs: Temperature: 98.0, Source: Temporal, Heart Rate: 93, Respiratory Rate: 18, BP: 112/74, Pulse Oximetry: 96, Weight: 54.550 Physical Exam General: Patient is awake, alert, cooperative wearing a towel on her head Head: Normocephalic and atraumatic. Eyes: Conjunctival normal. EOMI. PERRL. ENT: Mucous membranes moist. Neck: Supple, trachea is midline. Chest: Clear to auscultation bilaterally without rales, rhonchi, or wheezes. There is no accessory muscle use or retractions. Cardiac: RRR without murmurs, gallops, or rubs. Progress Results/Orders Results/Orders Vital Signs 03/20/25 03/20/25 03/20/25 21:44 23:30 23:30 Temp 98.0 Pulse 93 88 Resp 18 18 16 B/P (MAP) 112/74 124/82 (96) Pulse Ox 96 99 O2 Flow Rate 0 Medical Decision Making Findings Patient presents to the emergency room with no particular complaint. Vital signs are stable. He had not believe she is gravely disabled and he had not feel emergent labs or imaging is necessary Departure Disposition: 01 HOME / SELF CARE / HOMELESS Impression: Primary Impression: General medical exam Condition: Stable Discharge Instructions: General Discharge Instructions Referrals: NO PRIMARY CARE PROVIDER (PCP) Additional Comment Medical Screen Exam History: This is a 40-year-old female who presents with vague symptoms general malaise described as dehydration and I do not feel good patient reports feeling nauseous for the past months, patient reports loose bowel movements in the last three days otherwise patient reports no specific symptoms and when question on specific symptoms patient reports I do not know I just feel dehydrated. Patient reports no other acute symptoms or concerns. Exam: VITALS: Reviewed and as above. GENERAL: Alert, nontoxic appearing, no apparent distress. RESPIRATORY: No increased work of breathing, no respiratory distress, speaking in full clear sentences MSE performed in triage and patient returned to ED lobby by nursing staff to await available ED room The note accurately reflects work and decisions made by me.KELLI Ansari 03/20/25 22:33 Signature Scribe Signature: No scribe Attestation: The note accurately reflects work and decisions made by me.Niranjan Hardy MD 03/21/25 01:22 SARAH MONCADA Mar 20, 2025 22:33 NIRANJAN HARDY MD Mar 21, 2025 01:22
[2025-03-21 01:42] VITALS: BP 122/82; PULSE 82; RESP 16; TEMP 98; O2SAT 100
== END 2025-03-21 01:43 | disposition home or self-care (01) ==
LOC: ER 21:07
DX: E86.0 Dehydration (principal); F20.9 Schizophrenia, unspecified; Z79.899 Other long term (current) drug therapy; Z59.00 Homelessness unspecified
CPT/HCPCS: 99281; 99282

== ENCOUNTER 2025-03-22 19:04 | Emergency (ER) | payer MEDICAID ==
[~2025-03-22] VITALS: Ht 162.6 cm; Wt 57.0 kg
[2025-03-22 19:36] VITALS: BP 110/80; PULSE 74; RESP 16; TEMP 98; O2SAT 98
--- NOTE | 2025-03-22 20:19 | Physician Documentation ---
History of Present Illness ~ General Chief Complaint: See Chief Complaint Stated Complaint: DEHYDRATED Time Seen by MD: 19:43 Primary Medical Doctor: ALISSA CASTRO History of Present Illness Initial Comments Patient is seen today stating that she needs a drink of water in his sandwich and stating she feels little dehydrated. Patient denies any chest pain or sh ortness of breath or abdominal pain or nausea, vomiting, diarrhea. Patient has no other concern or complaint at this time. Medication Reconciliation Allergies: Coded Allergies: No Known Allergies (Unverified , 03/22/25) Scheduled Olanzapine (Zyprexa), 1 TAB PO HS, (Reported) Past Medical History Past Medical History: Schizophrenia Past Surgical History: no surgical history Alcohol Use: Other Lives In: Homeless Review of Systems Constitutional: Denies: chills, fever, weakness Eyes: Denies: pain, blurred vision ENT: Denies: ear pain, nose pain, throat pain, mouth pain Respiratory: Denies: cough, shortness of breath Cardiovascular: Denies: chest pain, palpitations Gastrointestinal: Denies: abdominal pain, nausea, vomiting Genitourinary: Denies: burning, dysuria Female Genitalia: Denies: vaginal discharge, pelvic pain Neurological: Denies: headache, dizziness Musculoskeletal: Denies: pain, swelling Integumentary: Denies: rash, lesions Allergic/Immunologic: Denies: hives, itching Hematologic/Lymphatic: Denies: no symptoms reported Psychiatric: Denies: depression, anxiety Physical Exam Physical Exam Vital Signs: Temperature: 98.0, Source: Oral, Heart Rate: 74, Respiratory Rate: 16, BP: 110/80, Pulse Oximetry: 98, Weight: 57.000 Oxygen Flow Rate: 0 Physical Exam General: Awake and Alert, no acute distress. HEENT: Conjunctiva pink, Sclera clear, Mucus Membranes moist. Neck: Supple without masses and tenderness. Resp: Unlabored. Lungs clear to auscultation bilaterally. Heart: Regular Rate and rhythm, normal S1 and S2 without murmur, rub or gallop. Abdomen: Soft and non tender no organomegaly Extremities: No cyanosis,clubbing or edema. Skin: Warm and Dry. Progress Results/Orders Results/Orders Vital Signs 03/22/25 19:36 Temp 98.0 Pulse 74 Resp 16 B/P (MAP) 110/80 Pulse Ox 98 O2 Flow Rate 0 Medical Decision Making Findings Patient is seen today stating that she needs a drink of water in his sandwich and stating she feels little dehydrated. Patient denies any chest pain or shortness of breath or abdominal pain or nausea, vomiting, diarrhea. Patient has no other concern or complaint at this time. We were preparing a sandwich for the patient in some close however patient left prior to receiving them. Patient will return to ED with any worsening, concerning or changing symptoms. Departure Disposition: 01 HOME / SELF CARE / HOMELESS Impression: Primary Impression: Homeless Additional Impression: Methamphetamine use disorder, moderate, in early remission Condition: Stable Additional Instructions: We were preparing a sandwich for the patient in some close however patient left prior to receiving them. Patient will return to ED with any worsening, co ncerning or changing symptoms. Referrals: NO PRIMARY CARE PROVIDER (PCP) Signature Scribe Signature: No scribe Attestation: No scribe TRANG LA PAC Mar 22, 2025 20:19
== END 2025-03-22 21:03 | disposition left against medical advice (07) ==
LOC: ER 19:05
DX: F15.21 Other stimulant dependence, in remission (principal); F20.9 Schizophrenia, unspecified; Z59.00 Homelessness unspecified; Z79.899 Other long term (current) drug therapy
CPT/HCPCS: 99281; 99282

== ENCOUNTER 2025-05-10 17:17 | Emergency (ER) | payer MEDICAID, OTHER ==
[~2025-05-10] VITALS: Ht 162.6 cm; Wt 47.1 kg
[2025-05-10 18:18] LABS: MEAN PLATELET VOLUME 7.0 FL (7.4-10.4); RED CELL DISTRIBUTION WIDTH 14.7 % (11.5-14.5)
[2025-05-10 18:37] LABS: CREATININE 0.73 MG/DL (0.40-0.90); TOTAL CARBON DIOXIDE 23.8 MMOL/L (24-32); eCRCL 78 ML/MIN; eGFR 89 ML/MIN
[2025-05-10 19:09] VITALS: BP 111/89; PULSE 66; RESP 18; TEMP 97.5; O2SAT 98
== END 2025-05-11 02:25 | disposition left against medical advice (07) ==
LOC: ER 17:17
DX: R10.9 Unspecified abdominal pain (principal); R11.10 Vomiting, unspecified; Z53.21 Procedure and treatment not carried out due to patient leaving prior to being seen by health care provider
CPT/HCPCS: 36415; 80053; 83690; 85025

== ENCOUNTER 2025-05-11 04:37 | Emergency (ER) | payer MEDICAID ==
[~2025-05-11] VITALS: Ht 162.6 cm; Wt 54.5 kg
[2025-05-11 04:55] VITALS: TEMP 98.4
[2025-05-11 06:50] LABS: URINE HCG NEGATIVE (NEG)
[2025-05-11 06:51] LABS: LEUKOCYTE ESTERASE ,URINE NEGATIVE (Neg); NITRITES, URINE NEGATIVE (Neg); OCCULT BLOOD,URINE NEGATIVE (Neg)
[2025-05-11 06:57] LABS: UA COLLECTION TYPE CLN CATCH MIDSTREAM
--- NOTE | 2025-05-11 08:25 | Physician Documentation ---
History of Present Illness General Chief Complaint: Abdominal Pain Stated Complaint: ABD PAIN Time Seen by MD: 08:08 Primary Medical Doctor: ALISSA CASTRO Mode of Arrival: Ambulatory History of Present Illness Initial Comments The patient is a 40-year-old female with a history of homelessness and mental illness who presents with lower abdominal pain. She was evaluated for this problem yesterday evening and discharge this morning. A CBC was unremarkable. CMP was nonrevealing. Her urinalysis today is normal in test negative. She reports that she did have diarrhea yesterday. Medication Reconciliation Allergies: Coded Allergies: No Known Allergies (Unverified , 03/22/25) Scheduled Olanzapine (Zyprexa), 1 TAB PO HS, (Reported) Past Medical History Past Medical History: Schizophrenia Past Surgical History: no surgical history Alcohol Use: Other Lives In: Homeless Review of Systems ROS Constitutional: Denies chills, fatigue, fever, weight gain or weight loss. HEENT: Denies hearing loss, sinus pressure or visual changes. Respiratory: Denies cough, shortness of breath or wheezing. Cardiovascular: Denies chest pain, pain while walking (claudication), edema or palpitations. Gastrointestinal: Lower abdominal pain and diarrhea (yesterday) Genitourinary: Denies painful urination (dysuria), excessive amount of urine (polyuria) or urinary frequency. Metabolic/Endocrine: Denies cold intolerance, heat intolerance, excessive thirst (polydipsia) or excessive hunger (polyphagia). Neurological: Denies dizziness, extremity numbness, extremity weakness, headaches, seizures or tremors. Psychiatric: Denies anxiety or depression. Integumentary: Denies breast discharge, breast lump, hives, mole change(s), rash or skin lesion. Musculoskeletal: Denies back pain, joint pain, joint swelling or neck pain. Hematologic: Denies easily bleeding, easily bruises, lymphedema or issues with blood clots. Immunologic: Denies food allergies or seasonal allergies. Physical Exam Physical Exam Vital Signs: Temperature: 98.4, Source: Temporal, Heart Rate: 62, Respiratory Rate: 12, BP: 94/68, Pulse Oximetry: 98, Weight: 54.540 Oxygen Flow Rate: 0 Physical Exam Physical Exam Vitals and nursing note reviewed. Constitutional: General: Patient is awake, alert, oriented x 4 in no acute distress and well appearing. Speech is clear and lucid. Appearance: Normal appearance. Patient is not ill-appearing, toxic-appearing or diaphoretic. HENT: Head: Normocephalic and atraumatic. Mouth/Throat: Mouth: Mucous membranes are moist. Pharynx: Oropharynx is clear. Eyes: General: No scleral icterus. Extraocular Movements: Extraocular movements intact. Pupils: Pupils are equal, round, and reactive to light. Neck: Supple, no Kernig or Brudzinski sign. Cardiovascular: Rate and Rhythm: Normal rate and regular rhythm. Heart sounds: No murmur heard. Pulmonary: Effort: No respiratory distress. Breath sounds: No wheezing, rhonchi or rales. Abdominal: General: There is no distension. Palpations: There is no fluid wave, hepatomegaly or mass. Tenderness: There is no abdominal tenderness. There is no guarding. Musculoskeletal: General: No swelling or deformity. Skin: Coloration: Skin is not jaundiced. Findings: No erythema or rash. Neurological: Mental Status: Patient is alert. Progress Results/Orders Results/Orders Completed Orders - NERY RODRÍGUEZ MD Urinalysis, Cult If Indicated (05/11/25 06:31) Hcg, Ur Ql (05/11/25 06:31) Ketorolac Trometh 30mg/Ml Vial (Toradol (05/11/25 08:20) Vital Signs 05/11/25 05/11/25 05/11/25 04:55 07:11 07:23 Temp 98.4 Pulse 73 62 Resp 18 15 12 B/P (MAP) 106/79 94/68 (77) Pulse Ox 99 98 O2 Flow Rate 0 Laboratory Tests Test 05/11/25 06:25 Urine Specimen Description Cln catch midstream Urine Color Straw Urine Clarity Clear Urine pH 6.0 Urine Specific [place] <=1.005 Urine Protein Negative Urine Glucose (UA) Negative Urine Ketones Negative Urine Occult Blood Negative Urine Nitrite Negative Urine Bilirubin Negative Urine Urobilinogen 0.2 Urine Leukocyte Esterase Negative Urine Culture Indicated Not ind Volume Urine Centrifuged 10 ml Urine HCG, Qualitative Negative Urine Comment Medical Decision Making Findings This patient has lower abdominal pain after having had diarrhea yesterday. CBC and CMP yesterday evening were nonrevealing. A urinalysis and test today were negative for acute findings. I am going to give her some ketorolac and discharge her. Departure Disposition: HOME / SELF CARE / HOMELESS Impression: Primary Impression: Abdominal pain Additional Impression Text It is important to see your doctor or primary care provider. Emergency care may be incomplete without proper follow-up. Symptoms sometimes change or new symptoms might arise after you leave the emergency department. It is important that you call your doctor if you become worse in any way, or return to the emergency department. You are strongly urged to follow-up with your physician to assure complete and thorough care. Please call your doctor's office today, and informed them that you were seen in the emergency department, and that you need to be seen immediately for close follow-up. If you do not have a primary care doctor we encourage you to proactively seek a local physician for close follow-up. Consider local clinics, [facility], or local [facility]. Prior to discharge we spoke at length concerning symptoms that would merit reevaluation, but please return to the emergency department for any symptoms that are concerning to you, and we will be happy to continue your evaluation and treatment. Please note you can always return to the emergency department if you are having difficulty coordinating close follow-up. If medications were prescribed, you should fill them at your local pharmacy immediately and take only as prescribed. Bring your new medications to your doc tors follow-up visit to discuss any changes that would be necessary. Please check [facility] for any results you did not receive in the Emergency Department: often we are unable to get all your tests back before you leave, and these tests need to be reviewed by your PCP and yourself. You can also call Medical Records if you are unable to access the internet to see [facility]. Return to the emergency department immediately for worsening chest pain, difficulty breathing, sweating, or other concerning emergent symptoms. Condition: Stable Discharge Instructions: Abdominal Pain (Nonspecific) Referrals: NO PRIMARY CARE PROVIDER (PCP) Education Educated: Patient Educated regarding: diagnosis, treatment Signature Scribe Signature: . Attestation: NERY CELIS MD May 11, 2025 08:25
[2025-05-11 08:45] VITALS: BP 104/80; PULSE 70; RESP 15; O2SAT 100
[2025-05-11] MEDS: ketorolac trometh 30MG/ML vial 30 MG/ML VIAL IM ONE (08:45)
== END 2025-05-11 08:57 | disposition home or self-care (01) ==
LOC: ER 04:38
DX: R10.30 Lower abdominal pain, unspecified (principal); R19.7 Diarrhea, unspecified; F20.9 Schizophrenia, unspecified; Z79.899 Other long term (current) drug therapy; Z59.00 Homelessness unspecified
CPT/HCPCS: 81003; 81025; 96372; 99283; J1885

== ENCOUNTER 2025-06-28 05:53 | Emergency (ER) | payer MEDICAID ==
[~2025-06-28] VITALS: Ht 162.6 cm; Wt 60.0 kg
[2025-06-28 06:05] VITALS: BP 121/81; PULSE 80; RESP 18; TEMP 97.3; O2SAT 98
--- NOTE | 2025-06-28 06:57 | Physician Documentation ---
History of Present Illness ~ Chief Complaint: Flu Symptoms Stated Complaint: SICK Time Seen by MD: 06:46 Primary Medical Doctor: ALISSA BLAIR Ms. Chaudhary is a 40 y/o female who presents to the ED stating that she feels unwell. She states that she feels like she may have the flu. Unknown sick contacts. No recent travel. No recent antibiotic exposure. No chest pain/pressure/palpitations or discomfort. Nonproductive cough. Medication Reconciliation Allergies: Coded Allergies: No Known Allergies (Unverified , 03/22/25) Scheduled Olanzapine (Zyprexa), 1 TAB PO HS, (Reported) Past Medical History Past Medical History: Schizophrenia Past Surgical History: no surgical history Alcohol Use: Other Lives In: Homeless Review of Systems All Other Systems at this time: Reviewed and Negative Constitutional: Reports: chills, malaise Eyes: Reports: no symptoms reported ENT: Reports: nose congestion Respiratory: Reports: cough Cardiovascular: Reports: no symptoms reported Gastrointestinal: Reports: no symptoms reported Female Genitalia: Reports: no reported symptoms Neurological: Reports: no symptoms reported Musculoskeletal: Reports: no symptoms reported Integumentary: Reports: no symptoms reported Allergic/Immunologic: Reports: no symptoms reported Hematologic/Lymphatic: Reports: no symptoms reported Physical Exam Vital Signs: RN Vital Signs have been reviewed: Yes, Temperature: 97.3, Heart Rate: 80, Respiratory Rate: 18, BP: 121/81, Pulse Oximetry: 98, Weight: 60.000 Oxygen Flow Rate: 0 General Appearance: alert, WD/WN, no apparent distress Eyes: normal inspection Nose: normal inspection Oropharynx: normal inspection Neck: full range of motion Respiratory: lungs clear, normal breath sounds, no respiratory distress Chest: no accessory muscle use Cardiovascular: normal peripheral pulses Gastrointestinal: normal palpation Rectal: deferred Extremities: normal range of motion Back: normal inspection Skin: normal color Neurologic: oriented x4 Psychiatric: normal mood/affect Progress Results/Orders Results/Orders Orders - SANDRA CARR MD Covid19 Binax Poc Result Entry (06/28/25 06:46) Urinalysis, Cult If Indicated (06/28/25 06:46) Influenza Type A&B Rapid Test (06/28/25 06:46) Vital Signs 06/28/25 06:05 Temp 97.3 Pulse 80 Resp 18 B/P (MAP) 121/81 Pulse Ox 98 O2 Flow Rate 0 Medical Decision Making Differential Dx:Considerations: Include: Dehydration, Electrolyte imbalance, Influenza, Pneumonia, Respiratory failure, Sepsis, UTI, Viral Syndrome Additional Comment Ms. Chaudhary is a 40 y/o female who presents to the ED stating that she feels like she has the flu. While here in the ED, she remained hemodynamically normal with ABC's intact and in NAD. She is afebrile and nontoxic. COVID-19 screen negative. Flu A/B screen negative. She smelled of urine on arrival. UA sent to evaluate. UA negative for signs of an acute infection. I have low clinical suspcion for occult sepsis/bacteremia. She has no new oxygen requirement. Pulmonary exam benign and nonfocal. She is safe for d/c home. She was given f ollow-up and return instructions. She voiced understanding and agreement with d/c instructions. Departure Disposition: HOME / SELF CARE / HOMELESS Impression: Primary Impression: General medical exam Additional Impression: Viral illness Condition: Stable Referrals: NO PRIMARY CARE PROVIDER (PCP) Education Educated: Patient Educated regarding: diagnosis Signature Scribe Signature: N/A Attestation: N/A SANDRA CARR MD Jun 28, 2025 06:57
== END 2025-06-28 08:35 | disposition left against medical advice (07) ==
LOC: ER 05:54
DX: Z00.00 Encounter for general adult medical examination without abnormal findings (principal); B34.9 Viral infection, unspecified; F20.9 Schizophrenia, unspecified; Z79.899 Other long term (current) drug therapy; Z59.00 Homelessness unspecified; Z20.822 Contact with and (suspected) exposure to COVID-19
CPT/HCPCS: 99282

== ENCOUNTER 2025-07-02 16:45 | Emergency (ER) | payer MEDICAID ==
[~2025-07-02] VITALS: Ht 165.1 cm; Wt 54.5 kg
[2025-07-02 17:01] VITALS: BP 116/77; PULSE 81; RESP 18; TEMP 97.5; O2SAT 98
--- NOTE | 2025-07-02 17:33 | Physician Documentation ---
History of Present Illness ~ Chief Complaint: Bite-insect Stated Complaint: FLU SYMPTOMS Time Seen by MD: 17:15 Primary Medical Doctor: ALISSA BLAIR This patient who is 40 years old presents requesting evaluation for suspected lice infestation. Addition she states she is hungry secondary to being homeless. Day of Onset: Jul 02, 2025 Tetanus within 5 years?: No Medication Reconciliation Allergies: Coded Allergies: No Known Allergies (Unverified , 03/22/25) Scheduled Olanzapine (Zyprexa), 1 TAB PO HS, (Reported) Permethrin 5% Cream* (Elimite 5% Cream*), 1 APPLIC TOP ONCE Past Medical History Past Medical History: Schizophrenia Past Surgical History: no surgical history Alcohol Use: Other Lives In: Homeless Review of Systems All Other Systems at this time: Reviewed and Negative ROS As stated above in the HPI, otherwise all systems are reviewed and negative. Physical Exam Vital Signs: Temperature: 97.5, Source: Temporal, Heart Rate: 81, Respiratory Rate: 18, BP: 116/77, Pulse Oximetry: 98, Weight: 54.550 Physical Exam General: Alert, no apparent distress. HEENT: PERRL, EOMI, no injection, moist mucous membranes. Neck: Full range of motion. Respiratory: Lungs clear, no respiratory distress. Chest: No accessory muscle use. Cardiovascular: Regular rate and rhythm, no murmurs. Gastrointestinal: Soft, nontender, nondistended. Bowels sounds present. Extremities: Normal range of motion, no deformity. Neurologic: Oriented x4. Psychiatric: Normal mood and affect. Skin: Normal color, warm and dry. No edema, no ecchymosis. Progress Results/Orders Results/Orders Orders - ASHISH KISER NP General Nursing Order (07/02/25 ) Completed Orders - ASHISH KISER [employer]POR[employer]VEL [employer]ENT Permethrin Topical Cream (Elimite Cream (07/02/25 17:30) Vital Signs 07/02/25 17:01 Temp 97.5 Pulse 81 Resp 18 B/P (MAP) 116/77 Pulse Ox 98 Medical Decision Making Findings Going to treat this patient empirically for a lice infestation. I nursing staff go ahead and provide the patient with nourishment of prior to discharge Departure Disposition: HOME / SELF CARE / HOMELESS Impression: Primary Impression: Insect bites Discharge Instructions: Lice, Adult Referrals: NO PRIMARY CARE PROVIDER (PCP) Prescriptions Permethrin 5% Cream* (Elimite 5% Cream*) 60 Gm Cream.gm. 1 APPLIC TOP ONCE, #60 GM massage into skin from head to soles of feet one time, leave on for 8-14 hours then remove by thorough washing Prov: ASHISH KISER NP 07/02/25 Education Educated: Patient Educated regarding: diagnosis Signature Scribe Signature: f Attestation: Scribed for Ashish Kiser [employer] Tech by Ashish Guajardo NP . 07/02/25 23:36 ASHISH KISER NP Jul 02, 2025 17:33
[2025-07-02] MEDS: Permethrin Cream 60gm TP ONE (18:20)
[2025-07-02] MEDS ORDERED: PERM60CR27 TOP (23:36)
== END 2025-07-02 18:57 | disposition left against medical advice (07) ==
LOC: ER 16:45
DX: T14.8XXA Other injury of unspecified body region, initial encounter (principal); F20.9 Schizophrenia, unspecified; W57.XXXA Bitten or stung by nonvenomous insect and other nonvenomous arthropods, initial encounter; Y93.89 Activity, other specified; Y92.89 Other specified places as the place of occurrence of the external cause; Y99.8 Other external cause status
CPT/HCPCS: 99282

== ENCOUNTER 2025-07-03 05:56 | Emergency (ER) | payer MEDICAID ==
[~2025-07-03] VITALS: Ht 165.1 cm; Wt 54.5 kg
[~2025-07-03 05:56] MED LIST changes: +PERM60CR27 TOP
[2025-07-03 06:11] VITALS: BP 122/89; PULSE 74; RESP 16; TEMP 97.8; O2SAT 96
[2025-07-03] MEDS: Permethrin 1% 59ml topical rinse TP ONE ×2 (07:23→08:17)
--- NOTE | 2025-07-03 07:31 | Physician Documentation ---
Addendum Francine 07/03/25 07:01 CHIEF COMPLAINT: The patient is a 40-year-old female who was seen here yesterday for head lice and prescribed permethrin but has not used it. She is back today for treatment. REVIEW OF SYSTEMS: Constitutional: Denies chills, fatigue, fever, weight gain or weight loss. HEENT: Denies hearing loss, sinus pressure or visual changes. Respiratory: Denies cough, shortness of breath or wheezing. Cardiovascular: Denies chest pain, pain while walking (claudication), edema or palpitations. Gastrointestinal: Denies abdominal pain, blood in stool, constipation, diarrhea, heartburn, loss of appetite, nausea or vomiting. Genitourinary: Denies painful urination (dysuria), excessive amount of urine (polyuria) or urinary frequency. Metabolic/Endocrine: Denies cold intolerance, heat intolerance, excessive thirst (polydipsia) or excessive hunger (polyphagia). Neurological: Denies dizziness, extremity numbness, extremity weakness, headaches, seizures or tremors. Psychiatric: Denies anxiety or depression. Integumentary: Head lice Musculoskeletal: Denies back pain, joint pain, joint swelling or neck pain. Hematologic: Denies easily bleeding, easily bruises, lymphedema or issues with blood clots. Immunologic: Denies food allergies or seasonal allergies. PHYSICAL EXAMINATION: Vitals and nursing note reviewed. Constitutional: General: Patient is awake, alert, oriented x 4 in no acute distress and well appearing. Speech is clear and lucid. Appearance: Normal appearance. Patient is not ill-appearing, toxic-appearing or diaphoretic. HENT: Head: Normocephalic and atraumatic. Mouth/Throat: Mouth: Mucous membranes are moist. Pharynx: Oropharynx is clear. Eyes: General: No scleral icterus. Extraocular Movements: Extraocular movements intact. Pupils: Pupils are equal, round, and reactive to light. Neck: Supple, no Kernig or Brudzinski sign. Cardiovascular: Rate and Rhythm: Normal rate and regular rhythm. Heart sounds: No murmur heard. Pulmonary: Effort: No respiratory distress. Breath sounds: No wheezing, rhonchi or rales. Abdominal: General: There is no distension. Palpations: There is no fluid wave, hepatomegaly or mass. Tenderness: There is no abdominal tenderness. There is no guarding. Musculoskeletal: General: No swelling or deformity. Skin: Coloration: Skin is not jaundiced. Findings: Head lice present. Neurological: Mental Status: Patient is alert. MEDICAL DECISION MAKING: This 40-year-old female is here for head lice and hunger (she is homeless). We are applying permethrin, as prescribed. We will also provide her with a meal. Departure Disposition: HOME / SELF CARE / HOMELESS Impression: Primary Impression: Head lice Additional Impression: Homeless Condition: Stable Education Educated: Patient Educated regarding: diagnosis, treatment, prognosis NERY RODRÍGUEZ MD Jul 03, 2025 07:31
== END 2025-07-03 09:11 | disposition home or self-care (01) ==
LOC: ER 05:56
DX: B85.0 Pediculosis due to Pediculus humanus capitis (principal); Z59.00 Homelessness unspecified; Z20.822 Contact with and (suspected) exposure to COVID-19
CPT/HCPCS: 36415; 87811; 99283

== ENCOUNTER 2025-07-16 23:25 | Emergency (ER) | payer MEDICAID ==
[~2025-07-16] VITALS: Ht 162.6 cm; Wt 55.0 kg
[2025-07-16 23:39] VITALS: BP 103/68; PULSE 73; RESP 16; TEMP 97.8; O2SAT 99
--- NOTE | 2025-07-17 00:06 | Physician Documentation ---
History of Present Illness ~ General Chief Complaint: See Chief Complaint Stated Complaint: SEE CHIEF COMPLAINT Time Seen by MD: 00:06 Primary Medical Doctor: ALISSA CASTRO History of Present Illness Initial Comments Patient presents to the emergency room for concerns for right ear pain that has well as asking to have a place to stay that has well as food and water. Medication Reconciliation Allergies: Coded Allergies: No Known Allergies (Unverified , 03/22/25) Scheduled Olanzapine (Zyprexa), 1 TAB PO HS, (Reported) Permethrin 5% Cream* (Elimite 5% Cream*), 1 APPLIC TOP ONCE Past Medical History Past Medical History: Schizophrenia Past Surgical History: no surgical history Alcohol Use: Other Lives In: Homeless Review of Systems ROS All review of systems negative except as per HPI Physical Exam Physical Exam Vital Signs: Temperature: 97.8, Heart Rate: 73, Respiratory Rate: 16, BP: 103/68, Pulse Oximetry: 99, Weight: 55.000 Oxygen Flow Rate: 0 Physical Exam General: Patient is awake, alert, oriented x4 in no acute distress Head: Normocephalic and atraumatic. Eyes: Conjunctival normal. EOMI. PERRL. ENT: Mucous membranes moist. Unable to visualize right tympanic membrane Neck: Supple, trachea is midline. Chest: Clear to auscultation bilaterally without rales, rhonchi, or wheezes. There is no accessory muscle use or retractions. Cardiac: RRR without murmurs, gallops, or rubs. Abd: Soft, nondistended, nontender, with normoactive bowel sounds. No guarding, rebound, or rigidity. Progress Results/Orders Results/Orders Vital Signs 07/16/25 23:39 Temp 97.8 Pulse 73 Resp 16 B/P (MAP) 103/68 Pulse Ox 99 O2 Flow Rate 0 Medical Decision Making Additional info obtained from: other Findings Patient presents to the emergency room with chief complaint of right ear pain. We will empirically treat for otitis media. He had not feel emergent labs or imaging is necessary. Differential Diagnosis That has has externa, otitis interna, mastoiditis. Departure Disposition: HOME / SELF CARE / HOMELESS Impression: Primary Impression: Ear pain Condition: Stable Discharge Instructions: Earache, Adult Referrals: NO PRIMARY CARE PROVIDER (PCP) Prescriptions Amoxicillin Trihydrate* (Amoxicillin*) 500 Mg Capsule 1 CAP PO Q12H for 10 Days, #20 CAP Prov: NIRANJAN HARDY MD 07/17/25 Signature Scribe Signature: No scribe Attestation: The note accurately reflects work and decisions made by me.Niranjan Hardy MD 07/17/25 00:11 NIRANJAN HARDY MD Jul 17, 2025 00:06
[2025-07-17] MEDS ORDERED: AMOX500C2 PO (00:11)
[2025-07-17] MEDS ORDERED: PERM60CR27 TP (00:49)
== END 2025-07-17 00:47 | disposition home or self-care (01) ==
LOC: ER 23:34
DX: H92.01 Otalgia, right ear (principal); F20.9 Schizophrenia, unspecified
CPT/HCPCS: 99283

== ENCOUNTER 2025-07-27 12:10 | Emergency (ER) | payer MEDICAID ==
[~2025-07-27] VITALS: Ht 162.6 cm; Wt 50.0 kg
[~2025-07-27 12:10] MED LIST changes: +AMOX500C2 PO; +PERM60CR27 TP
[2025-07-27 12:25] VITALS: BP 118/86; PULSE 88; RESP 16; TEMP 98.4; O2SAT 96
--- NOTE | 2025-07-27 13:01 | Physician Documentation ---
History of Present Illness ~ General Chief Complaint: See Chief Complaint Stated Complaint: MED CLEARANCE Time Seen by MD: 12:38 Primary Medical Doctor: ALISSA CASTRO Source: patient Mode of Arrival: Ambulatory Exam Limitations: no limitations History of Present Illness Initial Comments Patient requesting medical clearance no acute concerns Medication Reconciliation Allergies: Coded Allergies: No Known Allergies (Unverified , 07/25/25) Scheduled Amoxicillin Trihydrate* (Amoxicillin*), 1 CAP PO Q12H Olanzapine (Zyprexa), 1 TAB PO HS, (Reported) Permethrin 5% Cream* (Elimite 5% Cream*), 1 APPLIC TOP ONCE Permethrin 5% Cream* (Elimite 5% Cream*), 1 APPLIC TP ONCE Past Medical History Past Medical History: Schizophrenia Past Surgical History: no surgical history Alcohol Use: Other Lives In: Homeless Review of Systems All Other Systems at this time: Reviewed and Negative Physical Exam Physical Exam Vital Signs: RN Vital Signs have been reviewed: Yes, Temperature: 98.4, Source: Oral, Heart Rate: 88, Respiratory Rate: 16, BP: 118/86, Pulse Oximetry: 96, Weight: 50.000 Oxygen Flow Rate: 0 Physical Exam General: Alert, no apparent distress. Disheveled HEENT: moist mucous membranes. Neck: Full range of motion. Respiratory: No respiratory distress speaking in full sentences Chest: No accessory muscle use. Cardiovascular: Appears well perfused Neurologic: Oriented x4. Psychiatric: Patient history of schizophrenia alert and oriented Skin: Normal color, warm and dry. No edema, no ecchymosis. Progress Results/Orders Results/Orders Vital Signs 07/27/25 12:25 Temp 98.4 Pulse 88 Resp 16 B/P (MAP) 118/86 Pulse Ox 96 O2 Flow Rate 0 Medical Decision Making Additional information obtaine: N/A Findings Patient needed medical clearance for general assistance and not working either due to medical or mental condition. Patient is clearly unable to work and paperwork filled out for patient Differential Diagnosis Medical clearance Departure Time of Disposition: 13:00 Disposition: 01 HOME / SELF CARE / HOMELESS Impression: Primary Impression: Encounter for medical screening examination Condition: Stable Discharge Instructions: Medical Screening Exam Referrals: NO PRIMARY CARE PROVIDER (PCP) Education Educated: Patient Educated regarding: diagnosis, treatment, need for follow up Signature Scribe Signature: No scribe Attestation: The note accurately reflects work and decisions made by me.Sheila PEREIRA 07/27/25 18:37 SHEILA LICEA NP Jul 27, 2025 13:01
== END 2025-07-27 12:30 | disposition home or self-care (01) ==
LOC: ER 12:11
DX: Z00.00 Encounter for general adult medical examination without abnormal findings (principal); F20.9 Schizophrenia, unspecified; Z79.899 Other long term (current) drug therapy; Z59.00 Homelessness unspecified
CPT/HCPCS: 99282

== ENCOUNTER 2025-08-07 11:00 | Emergency (ER) | payer MEDICAID ==
[~2025-08-07] VITALS: Ht 162.6 cm; Wt 52.5 kg
[~2025-08-07 11:00] MED LIST changes: -AMOX500C2 PO; -PERM60CR27 TOP
[2025-08-07 11:17] VITALS: BP 139/96; PULSE 67; RESP 18; TEMP 97.2; O2SAT 100
--- NOTE | 2025-08-07 11:44 | Physician Documentation ---
History of Present Illness ~ Chief Complaint: See Chief Complaint Stated Complaint: COLD SYMPTOMS Time Seen by MD: 11:23 Primary Medical Doctor: ALISSA CASTRO HPI 40-year-old female presents to the ED with a complaint of nonspecific cold symptoms. When asked what her symptoms are she does not elaborate. Vitals are reassuring patient does not present in any acute distress Medication Reconciliation Allergies: Coded Allergies: No Known Allergies (Unverified , 07/25/25) Scheduled Olanzapine (Zyprexa), 1 TAB PO HS, (Reported) Permethrin 5% Cream* (Elimite 5% Cream*), 1 APPLIC TP ONCE Discontinued Medications Permethrin 5% Cream* (Elimite 5% Cream*), 1 APPLIC TOP ONCE Discontinued Reason: Auto Discontinued Past Medical History Alcohol Use: Other Review of Systems All Other Systems at this time: Reviewed and Negative ROS As stated above in the HPI, otherwise all systems are reviewed and negative. Physical Exam Vital Signs: Temperature: 97.2, Source: Oral, Heart Rate: 67, Respiratory Rate: 18, BP: 139/96, Pulse Oximetry: 100, Weight: 52.500 Oxygen Flow Rate: 0 Physical Exam General: Alert, no apparent distress. HEENT: PERRL, EOMI, no injection, moist mucous membranes. Neck: Full range of motion. Respiratory: Lungs clear, no respiratory distress. Chest: No accessory muscle use. Cardiovascular: Regular rate and rhythm, no murmurs. Gastrointestinal: Soft, nontender, nondistended. Bowels sounds present. Extremities: Normal range of motion, no deformity. Neurologic: Oriented x4. Psychiatric: Normal mood and affect. Skin: Normal color, warm and dry. No edema, no ecchymosis. Progress Results/Orders Results/Orders Vital Signs 08/07/25 11:17 Temp 97.2 Pulse 67 Resp 18 B/P (MAP) 139/96 Pulse Ox 100 O2 Flow Rate 0 Medical Decision Making Additional information obtaine: old records Findings eloped Differential Dx:Considerations: Include: Allergic rhinitis, Influenza, Otitis media, Peritonsillar abscess, Pharyngitis-Diphtheria, Pharyngitis-Streptoccal, Pharyngitis-Viral, Pneumonia, Pnuemonitis, Sinusitis, URI, Other Departure Disposition: 07 LEFT AWOL/ELOPED Impression: Primary Impression: General medical exam Referrals: NO PRIMARY CARE PROVIDER (PCP) Signature Scribe Signature: y Attestation: Scribed for Ashish Lopez Np by Ashish Guajardo NP . 08/07/25 16:08 ASHISH LOPEZ NP Aug 07, 2025 11:44
== END 2025-08-07 12:33 | disposition left against medical advice (07) ==
LOC: ER 11:01
DX: J00 Acute nasopharyngitis [common cold] (principal)
CPT/HCPCS: 99282

== ENCOUNTER 2025-09-19 08:58 | Emergency (ER) | payer MEDICAID ==
[~2025-09-19] VITALS: Ht 162.6 cm; Wt 51.1 kg
[~2025-09-19 08:58] MED LIST changes: -PERM60CR27 TP
[2025-09-19 09:01] VITALS: BP 113/79; PULSE 87; RESP 16; TEMP 98.4; O2SAT 99
== END 2025-09-19 14:45 | disposition left against medical advice (07) ==
LOC: ER 08:58
DX: T73.0XXA Starvation, initial encounter (principal); X58.XXXA Exposure to other specified factors, initial encounter; Z53.21 Procedure and treatment not carried out due to patient leaving prior to being seen by health care provider
CPT/HCPCS: 99281

== ENCOUNTER 2025-09-22 05:40 | Emergency (ER) | payer MEDICAID ==
[~2025-09-22] VITALS: Ht 162.6 cm; Wt 63.0 kg
[2025-09-22 05:53] VITALS: BP 120/84; PULSE 79; RESP 16; TEMP 98; O2SAT 100
--- NOTE | 2025-09-22 06:29 | RADIOLOGY REPORT ---
CHEST RADIOGRAPH Indication: Cough Technique: Single frontal view of the chest was obtained COMPARISON: DI CHEST,SINGLE VIEW on DOS: 10/09/24 FINDINGS: Lines and Tubes: None Lungs: Increased interstital prominence. This may represent pulmonary vascular congestion and/or viral pneumonia. Pleura: No effusion.No pneumothorax. Cardiomediastinal contours: Unremarkable Bones: Unremarkable IMPRESSION: Increased interstital prominence. This may represent pulmonary vascular congestion and/or viral pneumonia.
--- NOTE | 2025-09-22 07:33 | Physician Documentation ---
History of Present Illness ~ General Chief Complaint: Cough Stated Complaint: FLU SYMPTOMS Time Seen by MD: 05:58 Primary Medical Doctor: ALISSA CASTRO Source: patient Mode of Arrival: POV History of Present Illness Initial Comments Patient is a 40-year-old female presenting to the ED for evaluation of a cough that has been occurring for the past three months. Patient states that she is unsure if the cough has any sputum. She also reports of feeling dehydrated. Denies having any fevers. She is a former smoker but states that she quit a long time ago." There are no other questions, concerns or complaints at this time. Medication Reconciliation Allergies: Coded Allergies: No Known Allergies (Unverified , 09/19/25) Scheduled Azithromycin (Azithromycin), 1 TAB PO UD Olanzapine (Zyprexa), 1 TAB PO HS, (Reported) Past Medical History Past Medical History: Schizophrenia Past Surgical History: no surgical history Smoking Status: Former smoker Alcohol Use: Other Lives In: Homeless Review of Systems ROS ROS: Constitutional: Negative for fever and chills. HENT: Negative for sore throat and rhinorrhea. Eyes:Negative for pain and redness. Respiratory: Cough. Negative for shortness of breath. Cardiovascular: Negative for chest pain and palpitations. Gastrointestinal: Negative for nausea and vomiting. Genitourinary: Negative for dysuria and hematuria. Musculoskeletal: Negative for acute back pain and acute neck pain. Skin: Negative for rash and pruritus. Neurological: Negative for acute numbness or weakness. Physical Exam Physical Exam Vital Signs: Temperature: 98.0, Source: Temporal, Heart Rate: 79, Respiratory Rate: 16, BP: 120/84, Pulse Oximetry: 100, Weight: 63.000 Oxygen Flow Rate: 0 Physical Exam PHYSICAL EXAM: General Appearance: WDWN, No Distress, Cooperative, Awake Head: No Trauma. Scalp Normal Eyes: Lids normal, conjunctiva normal ENT: Mucous membranes normal, facial bones normal, lips normal, poor dentition Neck: Normal active FROM, non-tender with ROM, no meningeal signs, No JVD. Back: Normal active FROM, non-tender with ROM, no CVAT Resp: Normal resp rate, normal flow, lungs clear to auscultation, no resp distress, no retractions Heart: Reg rhythm, no murmur Abd: Soft, non-tender, no guarding, no rebound, no mass Musc/Skel: No chest wall tenderness, Normal ROM UE's and LE's, No acute bone/joint abnormality or tenderness Skin: Normal color, no petechia/purpura, no rash Extremities: No edema Neuro: Motor 5/5 & Symmetric Bilat, CN 2-12 grossly intact and symmetric bilat. Oriented x4, speech normal. Psych: Mood & Affect: Normal, Depressed: 0, Awareness & insight normal Progress Results/Orders Results/Orders Vital Signs 09/22/25 05:53 Temp 98.0 Pulse 79 Resp 16 B/P (MAP) 120/84 Pulse Ox 100 O2 Flow Rate 0 EKG/XRAY/CT/US/VASC/MRI Chest X-Ray : Interpreted By: radiologist Views: 1 VIEW Additional Comments CHEST RADIOGRAPH Indication: Cough Technique: Single frontal view of the chest was obtained COMPARISON: DI CHEST,SINGLE VIEW on DOS: 10/09/24 FINDINGS: Lines and Tubes: None Lungs: Increased interstital prominence. This may represent pulmonary vascular congestion and/or viral pneumonia. Pleura: No effusion.No pneumothorax. Cardiomediastinal contours: Unremarkable Bones: Unremarkable IMPRESSION: Increased interstital prominence. This may represent pulmonary vascular congestion and/or viral pneumonia. Electronically Signed by:EZRA FLORES MD Date & Time: 09/22/25626 Dictated by: EZRA FLORES MD Dictation date and time: 09/22/25615 Medical Decision Making Additional information obtaine: old records Findings Patient reports history of GI disorders Differential Diagnosis Patient is a 40-year-old female presenting to the ED for evaluation of a cough that has been occurring for the past three months. ER COURSE -I have reviewed the triage note. History obtained from patient -All Labs, if applicable, independently reviewed by me I checked in EMR for old Records Repeat Evaluation: Hemodynamically stable no respiratory distress saturation 99% room air Results and plan of care discussed with patient, patient understands and is agreeable to plan and disposition MEDICAL DECISION MAKIN-year-old female presents with prolonged cough feels dehydrated but no persistent tachycardia no dry mucous membranes patient did alert and oriented capillary refill less than 2 seconds x-ray appears to show likely pneumonitis patient will be treated with a Z-Blaze no evidence of pneumot horax, rib fracture, lobar pneumonia, patient we will be discharged home with strict return precautions Please see ED course for time stamped additional medical decision making during ED stay The following diagnoses have been considered unlikely to explain the patients presentation, requiring no further work up or treatment in the ED after review of the diagnostic impression, H&P, work-up and ED course. These include, but are not limited to: Pulmonary embolus, dissection, lobar pneumonia, pneumothorax Admission considered but hemodynamically stable with no respiratory distress Patient counseled on prescriptions given Portions of this chart may have been created with [employer] voice recognition software. Occasional wrong-word or sound-alike substitutions may have occurred due to the inherent limitations of voice recognition software. Please read the chart carefully and recognize, using context, where these substitutions have occurred. Departure Time of Disposition: 07:41 Disposition: 01 HOME / SELF CARE / HOMELESS Impression: Primary Impression: Acute bronchitis Condition: Stable Discharge Instructions: Bronchitis Referrals: [facility] 1 week Prescriptions Azithromycin (Azithromycin) 250 Mg Tablet 1 TAB PO UD for 5 Days, #6 TAB 2 the first day followed by 1 for days 2-5 Prov: LAURITA MILLARD MD 09/22/25 Education Educated: Patient Educated regarding: diagnosis Signature Scribe Signature: Scribed for Laurita Millard MD by Marianna Coffey . 09/22/25 07:53 Attestation: The note accurately reflects work and decisions made by me.Laurita Millard MD 09/22/25 LAURITA MILLARD MD Sep 22, 2025 07:33 MARIANNA PHAN Sep 22, 2025 07:55
[2025-09-22] MEDS ORDERED: AZIT250T83 PO (07:46)
== END 2025-09-22 07:55 | disposition home or self-care (01) ==
LOC: ER 05:40
DX: J20.9 Acute bronchitis, unspecified (principal); F20.9 Schizophrenia, unspecified; Z59.00 Homelessness unspecified; Z79.899 Other long term (current) drug therapy
CPT/HCPCS: 71045; 99283